=== PATIENT | male | born 1980 | race Two or more races ===

== ENCOUNTER 2017-10-28 16:40 | Emergency (ER) | payer BC ==
[~2017-10-28] VITALS: Ht 177.8 cm; Wt 122.5 kg
[2017-10-28] MEDS ORDERED: LORazepam 0.5 MG TAB PO ONE (17:30)
[2017-10-28 19:20] LABS: Basophils # (auto) 0.1 uL; Basophils % (auto) 0.8 % (0.0-2.0); Eosinophils # (auto) 0.3 uL; Eosinophils % (auto) 3.2 % (0.0-7.0); Hematocrit 43.2 % (41.0-53.0); Hemoglobin 14.8 g/dL (13.5-17.5); Lymphocytes # (auto) 2.7 uL; Lymphocytes % (auto) 26.4 % (10.0-50.0); Mean Corpuscular Hemoglobin 30.8 pg (28.0-32.0); Mean Corpuscular Hgb Conc. 34.2 g/dL (32.0-36.0); Monocytes # (auto) 0.9 uL; Monocytes % (auto) 8.7 % (0.0-12.0); Neutrophils # (auto) 6.3 uL; Neutrophils % (auto) 60.9 % (37.0-80.0); Nucleated Red Blood Cells % 0.1 %; Platelet Count (auto) 360 10^3/uL (140-450); Red Cell Distribution Width 13.1 % (11.8-14.3); White Blood Cell 10.4 10^3/uL (4.4-10.8)
[2017-10-28 19:44] LABS: Alanine Aminotransferase 50 U/L (16-61); Albumin 4.1 g/dL (3.4-5.0); Alkaline Phosphatase 70 U/L (45-117); Anion Gap 8 (5-15); Aspartate Aminotransferase 17 U/L (15-37); BUN/Creatinine Ratio 11.2; Bilirubin, Total 0.3 mg/dL (0.2-1.0); Blood Urea Nitrogen 12 mg/dL (7-18); Calcium 8.8 mg/dL (8.5-10.1); Carbon Dioxide 22 mmol/L (21-32); Chloride 109 mmol/L (98-107); GFR African American 99 mL/min; GFR Non-African American 82 mL/min; Glucose 102 mg/dL (74-106); Magnesium 2.6 mg/dL (1.6-2.6); Potassium 3.8 mmol/L (3.5-5.1); Sodium 139 mmol/L (136-145); Total Protein 7.8 g/dL (6.4-8.2)
[2017-10-28 20:04] VITALS: BP 109/72
== END 2017-10-28 19:53 | disposition home or self-care (01) ==
LOC: ER 16:45
DX: R07.89 Other chest pain (principal); F41.9 Anxiety disorder, unspecified; I10 Essential (primary) hypertension
CPT/HCPCS: 36415; 71046; 80053; 83735; 84484; 85025; 93005; 94761

== ENCOUNTER → 2022-05-28 | Outpatient (CLI) | payer BC ==
[2022-05-28 10:16] LABS: Basophils # (auto) 0.1 10 ^3/uL (0-0.2); Basophils % (auto) 0.8 % (0.0-2.0); Eosinophils # (auto) 0.3 10 ^3/uL (0-0.8); Eosinophils % (auto) 5.4 % (0.0-7.0); Hematocrit 43.4 % (41.0-53.0); Hemoglobin 14.8 g/dL (13.5-17.5); Lymphocytes # (auto) 2.5 10 ^3/uL (0.4-5.4); Lymphocytes % (auto) 40.7 % (10.0-50.0); Mean Corpuscular Hemoglobin 30.8 pg (28.0-32.0); Mean Corpuscular Hgb Conc. 34.1 g/dL (32.0-36.0); Mean Corpuscular Volume 90.1 fL (80.0-100.0); Monocytes # (auto) 0.6 10 ^3/uL (0-1.3); Monocytes % (auto) 10.4 % (0.0-12.0); Neutrophils # (auto) 2.7 10 ^3/uL (1.6-8.6); Neutrophils % (auto) 42.7 % (37.0-80.0); Nucleated Red Blood Cells % 0.3 %; Red Blood Cells 4.82 10^6/uL (4.5-5.90); Red Cell Distribution Width 13.4 % (11.8-14.3); White Blood Cell 6.2 10^3/uL (4.4-10.8)
[2022-05-28 10:24] LABS: Urine Bacteria NONE SEEN /hpf (None Seen); Urine Blood Negative /uL (Negative); Urine Specific Gravity 1.023 (1.001-1.035); Urine WBC <1 /hpf (0 - 3)
[2022-05-28 10:59] LABS: Albumin 3.9 g/dL (3.4-5.0); Potassium 4.2 mmol/L (3.5-5.1)
[2022-05-28 11:08] LABS: BUN/Creatinine Ratio 26.8 (10.0-20.0); Bilirubin, Total 0.5 mg/dL (0.2-1.0); Calcium 8.8 mg/dL (8.5-10.1); Total Protein 7.3 g/dL (6.4-8.2)
== END | disposition home or self-care (01) ==
LOC: LAB 09:38
PROVIDERS: ATTEND Nurse Practitioner
DX: Z00.00 Encounter for general adult medical examination without abnormal findings (principal); I10 Essential (primary) hypertension; R73.9 Hyperglycemia, unspecified; E78.5 Hyperlipidemia, unspecified
CPT/HCPCS: 36415; 80053; 80061; 81001; 83036; 84443; 85025

== ENCOUNTER → 2022-07-22 | Outpatient (CLI) | payer BC | END | disposition home or self-care (01) | LOC: Rad HDHVI 08:04 | PROVIDERS: ATTEND Internal Medicine Cardiovascular Disease | DX: I35.8 Other nonrheumatic aortic valve disorders (principal); E78.5 Hyperlipidemia, unspecified; R00.2 Palpitations | CPT/HCPCS: 93306 ==

== ENCOUNTER → 2022-08-04 | Outpatient (CLI) | payer BC ==
[~2022-08-04] VITALS: Ht 175.3 cm; Wt 113.4 kg
== END | disposition home or self-care (01) ==
LOC: Rad HDHVI 14:30
PROVIDERS: ATTEND Internal Medicine Cardiovascular Disease
DX: I25.10 Atherosclerotic heart disease of native coronary artery without angina pectoris (principal); R42 Dizziness and giddiness; R00.2 Palpitations; R07.89 Other chest pain; R06.02 Shortness of breath; E78.00 Pure hypercholesterolemia, unspecified; J44.9 Chronic obstructive pulmonary disease, unspecified; I11.0 Hypertensive heart disease with heart failure; I50.9 Heart failure, unspecified; Z79.899 Other long term (current) drug therapy
CPT/HCPCS: 78452; 93017; 96374; A9500

== ENCOUNTER → 2023-11-04 | Outpatient (CLI) | payer BC ==
[2023-11-04 10:45] LABS: Alanine Aminotransferase 35 U/L (7-40); Alkaline Phosphatase 47 U/L (46-116); Anion Gap 8 (5-15); BUN/Creatinine Ratio 13.7 (10.0-20.0); Blood Urea Nitrogen 13 mg/dL (9-23); Calcium 9.5 mg/dL (8.7-10.4); Carbon Dioxide 25 mmol/L (20-30); Chloride 106 mmol/L (98-107); Glucose 99 mg/dL (74-106); LDL Cholesterol 227 mg/dL (< 100); Potassium 4.3 mmol/L (3.5-5.1); Sodium 139 mmol/L (136-145); Triglycerides 122 mg/dL (< 150)
[2023-11-04 10:46] LABS: Albumin 4.6 g/dL (3.2-4.8); Aspartate Aminotransferase 14 U/L (13-40); Cholesterol 279 mg/dL (< 200); HDL Cholesterol 36 mg/dL (40-59)
[2023-11-04 10:47] LABS: Bilirubin, Total 0.6 mg/dL (0.2-1.0); Total Protein 6.9 g/dL (5.7-8.2)
== END | disposition home or self-care (01) ==
LOC: LAB 09:48
PROVIDERS: ATTEND Nurse Practitioner
DX: E78.5 Hyperlipidemia, unspecified (principal)
CPT/HCPCS: 36415; 80053; 80061

== ENCOUNTER → 2024-02-16 | Outpatient (CLI) | payer BC ==
[~2024-02-16] MED LIST: BUSP10TA31 PO; IOHEXOL 350 MG/ML 100ML IJ ONE; NEBI10TA2 PO
[2024-02-16 08:50] VITALS: BP 134/84; PULSE 79; RESP 16; O2SAT 97
[2024-02-16 09:05] VITALS: BP 136/74; PULSE 63; RESP 16; O2SAT 95
--- NOTE | 2024-02-16 10:18 | DVH ---
CTA CHEST INDICATION: R/O PE TECHNIQUE: Multidetector CTA of the chest was performed of the chest with 100 cc of intravenous contr ast. PULMONARY ANGIOGRAPHY PROTOCOL was utilized using a bolus-tracking technique centered on the rg n pulmonary artery. Axial, coronal and sagittal multiplanar and MIP reformats were performed. Radiation Dose Information: CT Dose: CTDI volume is 34.16 mGy. Dose-length product is 1162.37 mGy*cm The dose indicators for CT are the volume Computed Tomography (CT) Dose Index (CTDIvol) and the Dose Length Product (DLP), and are measured in units of mGy and mGy-cm, respectively. These indicators are not patient dose, but values generated from the CT scanner acquisition factors. The report includes radiation exposure data for exposures received during this examination. Findings: The evaluation of the lungs and pulmonary vasculature are limited secondary to respiratory motion. Pulmonary artery: There is no obvious pulmonary arterial filling defect to suggest pulmonary embolis m. The main pulmonary artery demonstrates normal caliber. Lungs/Pleura: No focal consolidation, pulmonary mass, or suspicious pulmonary nodule. There is no pl eural effusion. Heart/Vascular Structures: Normal heart size. The thoracic aorta demonstrates normal caliber. There is no evidence of pericardial effusion. Lymph Nodes: There is no evidence of thoracic lymphadenopathy. Musculoskeletal: No acute osseous abnormality. Upper abdomen: Limited portions of the upper abdomen are unremarkable. IMPRESSION: 1. Limited evaluation of the lungs and pulmonary vasculature secondary to respiratory motion. 2. There is no obvious pulmonary arterial filling defect to suggest pulmonary embolism. HS:Y
== END | disposition home or self-care (01) ==
LOC: Rad HDHVI 08:35
PROVIDERS: ATTEND Internal Medicine Cardiovascular Disease
DX: Z03.89 Encounter for observation for other suspected diseases and conditions ruled out (principal); R06.02 Shortness of breath; I20.9 Angina pectoris, unspecified
CPT/HCPCS: 71275; G0463; Q9967

== ENCOUNTER 2024-02-22 08:47 | Emergency (ER) | payer BC ==
[~2024-02-22] VITALS: Ht 177.8 cm; Wt 116.8 kg
[2024-02-22 09:09] VITALS: TEMP 98
--- NOTE | 2024-02-22 09:20 | DVH ---
CHEST RADIOGRAPH Indication: CHEST TIGHTNESS Technique: Frontal and lateral view of the chest was obtained Comparison: None FINDINGS: Lines and Tubes: None Lungs: Clear Pleura: No effusion. No pneumothorax. Cardiomediastinal contours: Unremarkable Bones: Unremarkable IMPRESSION: No evidence of acute disease.
--- NOTE | 2024-02-22 09:46 | ED.PDOC ---
HPI Comments 43Y M with PMHx HTN presents to ED for chief complaint high blood pressure readings. Pt states his BP was 155/92 at home. Per pt, his blood pressure has been controlled with diet and exercise in the past and he does not currently take any HTN medications. BP upon ED arrival was 147/92 and 142/82. Pt is being f/u by Dr. Cordon for previous chest tightness issues and had CTA done last week. Pt also has stress test scheduled for this Tuesday02/24/2024. Chief Complaint: High Blood Pressure Time Seen by MD: 09:30 Primary Care Provider: JOSE Reviewed Notes: Nurses Notes, Medications, Allergies Allergies: Coded Allergies: NO KNOWN ALLERGIES (Unverified , 10/28/17) Information Source: Patient Mode of Arrival: Ambulatory Severity: Mild Timing: Days Duration: Intermittent Onset: At Rest Cardiac Risk Factors: HTN PE Risk Factors: None History of: None Modifying Factors: Nothing Associated Signs and Symptoms: None Past Medical History PAST MEDICAL HISTORY: HTN Surgical History: Denies all surgeries Family History Family History: Unknown Social History Smoker: Non-Smoker Alcohol: Denies ETOH Use Drugs: Denies Drug Use Lives In: Home Constitutional: denies: chills, diaphoresis, fatigue, fever, malaise, sweats, weakness, others EENTM: denies: blurred vision, double vision, ear bleeding, ear discharge, ear drainage, ear pain, ear ringing, eye pain, eye redness, hearing loss, mouth pain, mouth swelling, nasal discharge, nose bleeding, nose congestion, nose pain, photophobia, tearing, throat pain, throat swelling, voice changes, others Respiratory: denies: cough, hemoptysis, orthopnea, SOB at rest, shortness of breath, SOB with excertion, stridor, wheezing, others Cardiovascular: denies: chest pain, dizzy spells, diaphoresis, Dyspnea on exertion, edema, irregular heart beat, left arm pain, lightheadedness, palpitations, PND, syncope, others Gastrointestinal: denies: abdomen distended, abdominal pain, blood streaked bowels, constipated, diarrhea, dysphagia, difficulty swallowing, hematemesis, melena, nausea, poor appetite, poor fluid intake, rectal bleeding, rectal pain, vomiting, others Genitourinary: denies: burning, dysuria, flank pain, frequency, hematuria, incontinence, penile discharge, penile sore, pain, testicle pain, testicle swelling, urgency, others Neurological: denies: dizziness, fainting, headache, left sided numbness, left sided weakness, numbness, paresthesia, pre-existing deficit, right sided numbness, right sided weakness, seizure, speech problems, tingling, tremors, weakness, others Musculoskeletal: denies: back pain, gout, joint pain, joint swelling, muscle pain, muscle stiffness, neck pain, others Integumetry: denies: bruises, change in color, change in hair/nails, dryness, laceration, lesions, lumps, rash, wounds, others Allergic/Immunocompromised: denies: Difficulty Healing, Frequent Infections, Hives, Itching, others Hematologic/Lymphatic: denies: anemia, blood clots, easy bleeding, easy bruising, swollen glands, others Endocrine: denies: excessive hunger, excessive sweating, excessive thirst, excessive urination, flushing, intolerance to cold, intolerance to heat, unexplained weight gain, unexplained weight loss, others Psychiatric: denies: anxiety, bipolar disorder, depression, hopeless, panic disorder, schizophrenia, sleepless, suicidal, others All Other Systems: Reviewed and Negative Physical Exam General Appearance: No Apparent Distress, Normal HEENT: Normal ENT Inspection, PERRL/EOMI, Pharynx Normal, TMs Normal Neck: Full Range of Motion, Non-Tender, Normal, Normal Inspection Respiratory: Chest Non-Tender, Lungs Clear, No Accessory Muscle Use, No Respiratory Distress, Normal Breath Sounds Cardiovascular: No Edema, No JVD, No Murmur, No Gallop, Normal Peripheral Pul ses, Regular Rate/Rhythm Breast Exam: Deferred Gastrointestinal: No Organomegaly, Non Tender, No Pulsatile Mass, Normal Bowel Sounds, Soft Genitalia: Deferred Pelvic: Deferred Rectal: Deferred Extremities: No calf tenderness, Normal capillary refill, Normal inspection, Normal range of motion, Non-tender, No pedal edema Musculoskeletal : Apperance: Normal Neurologic: Alert, centrifugal machine tender II-XII nml as Tested, No Motor Deficits, Normal Affect, Normal Mood, No Sensory Deficits Cerebellar Function: Normal Reflexes: Normal Skin: Dry, Normal Color, Warm Peripheral Pulses: 1+ carotid (R), 1+ carotid (L) Lymphatic: No Adenopathy EKG EKG : Pulse Rate (adult): 73 Cardiac Rhythm: NSR Was a procedure done? Was a procedure done?: No CP Differential Dx Differential Diagnosis: Angina, Anxiety / Panic Attack, Electrolyte Disorder Differential Diagnosis: HTN Essential Differential Diagnosis: Chest Wall Pain, Costochondritis, Esophageal reflux/spasm, Pneumonia X-Ray, Labs, Meds, VS Vital Signs Date Time Temp Pulse Resp B/P (MAP) Pulse Ox O2 Delivery O2 Flow Rate FiO2 02/22/24 11:11 67 18 133/75 (94) 98 02/22/24 09:54 64 02/22/24 09:46 73 02/22/24 09:09 77 18 98 Room Air 02/22/24 09:09 98.0 77 18 142/82 (102) 98 98.0 02/22/24 08:59 73 02/22/24 08:55 99.2 89 18 147/92 (110) 97 Lab Test 02/22/24 09:58 02/22/24 09:02 Range/Units Troponin I High Sensitivity < 3 L < 3 L </=54 ng/L White Blood Count 6.1 4.4-10.8 10^3/uL Red Blood Count 4.81 4.5-5.90 10^6/uL Hemoglobin 14.8 13.5-17.5 g/dL Hematocrit 43.5 41.0-53.0 % Mean Corpuscular Volume 90.5 80.0-100.0 fL Mean Corpuscular Hemoglobin 30.8 28.0-32.0 pg Mean Corpuscular Hemoglobin Concent 34.0 32.0-36.0 g/dL Red Cell Distribution Width 13.1 11.8-14.3 % Platelet Count 268 140-450 10^3/uL Mean Platelet Volume 7.8 6.9-10.8 fL Neutrophils (%) (Auto) 59.8 37.0-80.0 % Lymphocytes (%) (Auto) 30.3 10.0-50.0 % Monocytes (%) (Auto) 6.5 0.0-12.0 % Eosinophils (%) (Auto) 2.8 0.0-7.0 % Basophils (%) (Auto) 0.6 0.0-2.0 % Neutrophils # (Auto) 3.7 1.6-8.6 10 ^3/uL Lymphocytes # (Auto) 1.9 0.4-5.4 10 ^3/uL Monocytes # (Auto) 0.4 0-1.3 10 ^3/uL Eosinophils # (Auto) 0.2 0-0.8 10 ^3/uL Basophils # (Auto) 0 0-0.2 10 ^3/uL Nucleated Red Blood Cells 0.0 % Sodium Level 139 136-145 mmol/L Potassium Level 3.9 3.5-5.1 mmol/L Chloride Level 108 H 98-107 mmol/L Carbon Dioxide Level 24 20-31 mmol/L Anion Gap 7 5-15 Blood Urea Nitrogen 20 9-23 mg/dL Creatinine 1.10 0.700-1.30 mg/dL Glomerular Filtration Rate Calc 85 >90 mL/min BUN/Creatinine Ratio 18.2 10.0-20.0 Serum Glucose 130 H 74-106 mg/dL Calcium Level 10.0 8.7-10.4 mg/dL Total Bilirubin 0.5 0.2-1.0 mg/dL Aspartate Amino Transferase (AST) 19 13-40 U/L Alanine Aminotransferase (ALT) 33 7-40 U/L Alkaline Phosphatase 60 46-116 U/L Total Protein 7.1 5.7-8.2 g/dL Albumin 4.7 3.2-4.8 g/dL [place] [address] Ph: [phone] DIAGNOSTIC IMAGING Diagnostic Imaging Report : [id number] Signed PATIENT: JOSE COE ACCT: [id number] UNIT: [id number] : 1980 LOC: ER ROOM / BED: / AGE / SEX: 43 / M ADM STATUS: REG ER SERVICE [id number] ORDERING PHYSICIAN: MARIELOS RUBIO MD PROCEDURE(s): CXR2 - CHEST TWO VIEWS ROUTINE REASON: CHEST TIGHTNESS ORDER NUMBER(s): [id number], ACCESSION NUMBER(s): [id number] CHEST RADIOGRAPH Indication: CHEST TIGHTNESS Technique: Frontal and lateral view of the chest was obtained Comparison: None FINDINGS: Lines and Tubes: None Lungs: Clear Pleura: No effusion. No pneumothorax. Cardiomediastinal contours: Unremarkable Bones: Unremarkable IMPRESSION: No evidence of acute disease. ATED BY: ZE MUNIZ MD DICTATED DATE/TIME: 02/22/24915 SIGNED BY: ZE MUNIZ MD SIGNED DATE/TIME: 02/22/24915 CC: X-Ray, Labs, Meds, VS Comment Course in the emergency department eventful patient came in complaining of uncontrolled hypertension and chest pressure he has been seeing Dr. Howard for the past two weeks for the same issues his blood pressure at this time is 1:40 a.m. Chest x-ray is normal EKG shows normal sinus rhythm at 73 Troponin pre and three CBC normal CMP normal except for a blood sugar of 130 Patient is feeling better and will be discharged home to follow up with his PCP and compression molding machine tender Time of 1ST Reevaluation: 10:00 Reevaluation 1ST: Unchanged Patient Education/Counseling: Diagnosis, Treatment Family Education/Counseling: No Family Present Departure 1 Departure Time of Disposition: 12:21 Impression: Primary Impression: Uncontrolled hypertension Additional Impressions: Musculoskeletal chest pain Situational anxiety Disposition: HOME / SELF CARE / HOMELESS Condition: Fair Additional Instructions: Push fluids and follow up with your compression molding machine tender e-Prescriptions Buspirone HCl (Buspirone HCl) 10 Mg Tab 10 MG PO BID for 30 Days, #60 TAB Prov: MARIELOS RUBIO MD 02/22/24 Nebivolol Hcl (Bystolic) 10 Mg Tab 1 TAB PO bedtime for 30 Days, #30 TAB 1 Refill Prov: MARIELOS RUBIO MD 02/22/24 Discharged With: Self Critical Care Note Critical Care Time?: No Stability Stability form required: No Heart Score Heart Score: Heart Score Response (Comments) Value History Slightly Suspicious 0 EKG Normal 0 Age <45 0 Risk Factors 1 or 2 risk factors 1 Troponin Normal limit 0 Total 1 I personally scribed for MARIELOS RUBIO MD ([email or web address]) on 02/22/24 at 09:46. Electronically submitted by Taylor Amin ([employer]). I personally scribed for MARIELOS RUBIO MD ([email or web address]) on 02/22/24 at 09:55. Electronically submitted by Taylor Amni ([email or web address]). MARIELOS RUBIO MD Feb 22, 2024 09:46
--- NOTE | 2024-02-22 09:55 | ECG ---
[facility] Test Date: 2024-02-22 Test Time: 09:54:00 Pat Name: JOSE COE Department: ER Room: Gender: M Human Resources Operations Director: SHA : 1980 Requested By: MARIELOS RUBOI Order Number: [id number] Reading MD: Thom Blas Measurements Intervals [place] Rate: 64 P: 77 SC: 161 QRS: 78 QRSD: 104 T: 13 QT: 350 QTc: 361 Interpretive Statements Sinus rhythm Abnormal inferior Q waves Electronically Signed On 02-23-2024 8:54:28 PST by Thom Blas Please click the below link to view image of tracing.
[2024-02-22 09:56] LABS: Alanine Aminotransferase 33 U/L (7-40); Albumin 4.7 g/dL (3.2-4.8); Alkaline Phosphatase 60 U/L (46-116); Anion Gap 7 (5-15); Aspartate Aminotransferase 19 U/L (13-40); BUN/Creatinine Ratio 18.2 (10.0-20.0); Bilirubin, Total 0.5 mg/dL (0.2-1.0); Blood Urea Nitrogen 20 mg/dL (9-23); Carbon Dioxide 24 mmol/L (20-31); Potassium 3.9 mmol/L (3.5-5.1); Sodium 139 mmol/L (136-145); Total Protein 7.1 g/dL (5.7-8.2)
[2024-02-22 10:22] LABS: Chloride 108 mmol/L (98-107); Glucose 130 mg/dL (74-106)
[2024-02-22 10:33] LABS: Basophils # (auto) 0 10 ^3/uL (0-0.2); Basophils % (auto) 0.6 % (0.0-2.0); Eosinophils # (auto) 0.2 10 ^3/uL (0-0.8); Eosinophils % (auto) 2.8 % (0.0-7.0); Hematocrit 43.5 % (41.0-53.0); Hemoglobin 14.8 g/dL (13.5-17.5); Lymphocytes # (auto) 1.9 10 ^3/uL (0.4-5.4); Lymphocytes % (auto) 30.3 % (10.0-50.0); Mean Corpuscular Hemoglobin 30.8 pg (28.0-32.0); Mean Corpuscular Volume 90.5 fL (80.0-100.0); Monocytes # (auto) 0.4 10 ^3/uL (0-1.3); Monocytes % (auto) 6.5 % (0.0-12.0); Neutrophils # (auto) 3.7 10 ^3/uL (1.6-8.6); Neutrophils % (auto) 59.8 % (37.0-80.0); Platelet Count (auto) 268 10^3/uL (140-450); Red Blood Cells 4.81 10^6/uL (4.5-5.90); Red Cell Distribution Width 13.1 % (11.8-14.3); White Blood Cell 6.1 10^3/uL (4.4-10.8)
[2024-02-22 11:11] VITALS: BP 133/75; PULSE 67; RESP 18; O2SAT 98
[2024-02-22] MEDS ORDERED: BUSP10TA31 PO ×2 (12:26→14:21)
[2024-02-22] MEDS ORDERED: NEBI10TA2 PO ×2 (12:26→14:21)
--- NOTE | 2024-02-28 18:03 | ECG ---
[facility] Test Date: 2024-02-22 Test Time: 08:59:54 Pat Name: JOSE COE Department: ER Room: Gender: M Project Manager: LUL : 1980 Requested By: MARIELOS RUBIO Order Number: [id number] Reading MD: Thom Blas Measurements Intervals [place] Rate: 73 P: 66 NC: 129 QRS: 88 QRSD: 110 T: 1 QT: 345 QTc: 381 Interpretive Statements Sinus rhythm Abnormal inferior Q waves Electronically Signed On 02-28-2024 18:13:05 PST by Thom Blas Please click the below link to view image of tracing.
== END 2024-02-22 12:49 | disposition home or self-care (01) ==
LOC: ER 08:47
DX: I10 Essential (primary) hypertension (principal); R07.89 Other chest pain; F41.9 Anxiety disorder, unspecified
CPT/HCPCS: 36415; 71046; 80053; 84484; 85025; 93005

== ENCOUNTER → 2024-02-24 | Outpatient (CLI) | payer BC ==
[~2024-02-24] VITALS: Ht 175.3 cm; Wt 113.4 kg
[~2024-02-24] MED LIST changes: -IOHEXOL 350 MG/ML 100ML IJ ONE
== END | disposition home or self-care (01) ==
LOC: Rad HDHVI 09:42
PROVIDERS: ATTEND Internal Medicine Cardiovascular Disease
DX: I11.0 Hypertensive heart disease with heart failure (principal); R00.2 Palpitations; I50.33 Acute on chronic diastolic (congestive) heart failure; I47.20 Ventricular tachycardia, unspecified; E78.5 Hyperlipidemia, unspecified; R07.89 Other chest pain; I49.3 Ventricular premature depolarization; Z82.49 Family history of ischemic heart disease and other diseases of the circulatory system
CPT/HCPCS: 78452; 93017; 96374; A9500

== ENCOUNTER → 2024-03-20 | Outpatient (CLI) | payer BC ==
[~2024-03-20] MED LIST changes: +ASPI-543 PO; +ATOR10TA52 PO; +ESOM40CA39 PO; +MAGN100T9 PO
[2024-03-20 13:00] VITALS: BP 122/79; PULSE 60; RESP 16; O2SAT 95
[2024-03-20 13:15] VITALS: BP 117/72; PULSE 64; RESP 16; O2SAT 95
--- NOTE | 2024-03-20 13:33 | DVH ---
XY CHEST TWO VIEWS ROUTINE CLINICAL HISTORY: PRE OP COMPARISON: XY CHEST TWO VIEWS ROUTINE on DOS: 02/22/24 TECHNIQUE: Frontal and lateral view of the chest was obtained FINDINGS: Lines and Tubes: None Lungs: No focal consolidation. Pleura: No effusion. No pneumothorax. Cardiomediastinal contours: Unremarkable Bones: No acute osseous abnormality. IMPRESSION: No acute cardiopulmonary disease.
--- NOTE | 2024-03-22 12:38 | DVHHP ---
ADMIT DATE: 03/21/2024 HISTORY OF PRESENT ILLNESS: The patient, who is 44 years old, presented with signs and symptom complex of shortness of breath, increasing blood pressure, morbid obesity. The patient's echocardiogram shows diminished left ventricular ejection fraction, and because of the above finding, it is felt that the patient should undergo coronary angiography to define coronary anatomy. Risks and benefits were explained to the patient. He denies previous history of myocardial infarction. Denies any history of trauma. Denies any history of drug use such as amphetamine or cocaine use. No history of tobacco use as well. No excessive use of alcohol. He denies any recent travel abroad. No history of any recent viral prodrome that could have caused his symptoms. Sleep apnea cannot be excluded at this time. He may require sleep study in the long run. REVIEW OF SYSTEMS: He denies any fever, chills, melena, hematochezia, hematemesis, hemoptysis. No hematuria. Denies any GI symptomatology such as irritable bowel syndrome, inflammatory bowel disease, diverticulitis or diverticulosis. Denies any infiltrative process such as amyloidosis or sarcoidosis. Denies any history of any liver disease. Denies any history of any infectious diseases such as hepatitis, HIV, etc. PHYSICAL EXAMINATION: VITAL SIGNS: Blood pressure is 134/80, pulse of 70, O2 saturation 98% on room air. HEENT: Pupils are reactive. Funduscopic exam is benign. Sclerae anicteric. Extraocular muscles are intact. Oral mucosa moist. Posterior pharynx without any exudates. NECK: No cervical adenopathy. No supraclavicular adenopathy. Carotid pulses are 2+ symmetrical, normal upstroke and contour. Thyroid is within normal limits. PULMONARY: Clear to auscultation. CARDIOVASCULAR: Regular rate. PMI is slightly diffuse, laterally displaced. ABDOMEN: Obese. Unable to appreciate an organomegaly. Stool guaiac is negative. NEUROLOGIC: The patient is intact. EXTREMITIES: 1+ pulses. ASSESSMENT AND PLAN: Thus, the patient appears to have dilated cardiomyopathy. Left heart catheterization will be done to rule out coronary artery disease and etiology of his heart dysfunction. We will make further recommendations after the left heart catheterization. Bravo Knight MD SA/ESTHER TID: [id number] RECEIPT: [id number]
== END | disposition home or self-care (01) ==
LOC: Rad HDHVI 12:43
PROVIDERS: ATTEND Internal Medicine Cardiovascular Disease
DX: Z01.811 Encounter for preprocedural respiratory examination (principal); I50.1 Left ventricular failure, unspecified
CPT/HCPCS: 71046; 93005; G0463

== ENCOUNTER 2024-03-22 07:41 | Day surgery (SDC) | payer BC ==
[2024-03-20 14:47] LABS: Basophils # (auto) 0.1 10 ^3/uL (0-0.2); Basophils % (auto) 1.3 % (0.0-2.0); Eosinophils # (auto) 0.3 10 ^3/uL (0-0.8); Eosinophils % (auto) 2.7 % (0.0-7.0); Hematocrit 45.8 % (41.0-53.0); Hemoglobin 15.3 g/dL (13.5-17.5); Lymphocytes # (auto) 3.2 10 ^3/uL (0.4-5.4); Lymphocytes % (auto) 34.4 % (10.0-50.0); Mean Corpuscular Hemoglobin 30.6 pg (28.0-32.0); Mean Corpuscular Hgb Conc. 33.5 g/dL (32.0-36.0); Mean Corpuscular Volume 91.2 fL (80.0-100.0); Monocytes # (auto) 0.7 10 ^3/uL (0-1.3); Monocytes % (auto) 7.9 % (0.0-12.0); Neutrophils # (auto) 5.1 10 ^3/uL (1.6-8.6); Neutrophils % (auto) 53.7 % (37.0-80.0); Platelet Count (auto) 287 10^3/uL (140-450); Red Blood Cells 5.02 10^6/uL (4.5-5.90); Red Cell Distribution Width 13.1 % (11.8-14.3); White Blood Cell 9.4 10^3/uL (4.4-10.8)
[2024-03-20 15:02] LABS: Chloride 106 mmol/L (98-107); Potassium 4.2 mmol/L (3.5-5.1); Sodium 141 mmol/L (136-145)
[2024-03-20 15:03] LABS: Anion Gap 8 (5-15); Carbon Dioxide 27 mmol/L (20-31)
[2024-03-20 15:04] LABS: Calcium 10.1 mg/dL (8.7-10.4)
[2024-03-20 15:09] LABS: Blood Urea Nitrogen 16 mg/dL (9-23); Glucose 84 mg/dL (74-106)
[2024-03-20 15:17] LABS: INR 1.01 (0.9-1.15); Partial Thromboplastin Time 27.2 SEC (24.5-34.5); Prothrombin Time 10.7 sec (9.3-11.8)
[~2024-03-22] VITALS: Ht 175.3 cm; Wt 121.1 kg
[2024-03-22] VITALS (11 sets, daily range): BP systolic 96–131; BP diastolic 54–87; PULSE 55–76; RESP 14–20; O2SAT 20–96
[~2024-03-22 07:41] MED LIST changes: -NEBI10TA2 PO
[2024-03-22] MEDS ORDERED: fentaNYL CITRATE 100 MCG/2 ML VL ONE (10:22)
[2024-03-22] MEDS ORDERED: LIDOCAINE 2%HCL (LOCAL ANESTH.) INJ 20ML MDV ONE (10:23)
[2024-03-22] MEDS ORDERED: MIDAZOLAM HCL 2MG/2ML 2ml VIAL (1mg/ml) ONE (10:23)
[2024-03-22] MEDS ORDERED: SODIUM CHL 0.9% 0 ML ONE (10:29)
[2024-03-22] MEDS ORDERED: ANGIOMAX 250 MG VIAL IV ONE (10:29)
--- NOTE | 2024-03-22 12:13 | DVHDS ---
DATE OF DISCHARGE: 03/22/2024 DISCHARGE DIAGNOSES: The patient with dilated cardiomyopathy, heart failure with reduced ejection fraction, chronic. HOSPITAL COURSE: The patient is obese. I have instructed him to lose weight. He may have a component of sleep apnea that is contributing to the dilated cardiomyopathy, although viral cardiomyopathy cannot be excluded or infiltrative cardiomyopathy cannot be excluded at this time. Continue all current medications. Follow up with me in 1 week. Stable at the time of discharge. DISPOSITION: Home. ACTIVITY: As instructed. DIET: Will be 2 gram sodium diet. Bravo Knight MD SA/JADA TID: [id number] RECEIPT: [id number]
--- NOTE | 2024-03-22 12:15 | DVHOP ---
DATE OF SURGERY: 03/22/2024 The patient who is 44 years old with history of cardiomyopathy now to undergo coronary angiography to rule out coronary artery disease. Risks and benefits were explained to the patient. PROCEDURES PERFORMED: * Selective left and right coronary angiography. * Ventriculogram. * Right iliac angiography. * Conscious sedation. DESCRIPTION OF PROCEDURE: The patient was prepped and draped under sterile conditions. Xylocaine 1% used to anesthetize the right groin. Using Cook needle, right femoral artery was engaged. With Seldinger technique, a 6-Indian sheath in the right femoral artery. Using 6-Indian JL4 catheter and 6-Indian JR4 catheter, selective left and right coronary angiographies were performed. Using 6-Indian pigtail catheter, ventriculogram was done. There were no complications. The patient tolerated the procedure well. Right femoral arteriotomy site was closed using the Angio-Seal device. There was some difficulty deploying the device however but adequate seal was obtained. RESULTS: * Left main patent. * Left anterior descending artery was patent. * Circumflex was patent and dominant. * Right coronary artery patent without any flow-restrictive lesion. * Left ventricular function shows global hypokinesis and estimated EF around 40%-45% with an LVEDP of 15 mmHg with no gradient across the aortic valve. CONCLUSION: The patient with dilated cardiomyopathy with normal coronary anatomy with an EF around 40%-45%. Bravo Knight MD SA/SRIDHAR TID: [id number] RECEIPT: [id number]
== END 2024-03-22 16:08 | disposition home or self-care (01) ==
LOC: CATH 07:41
PROVIDERS: ATTEND Internal Medicine Cardiovascular Disease
DX: R94.39 Abnormal result of other cardiovascular function study (principal); R07.89 Other chest pain; R06.02 Shortness of breath; I11.0 Hypertensive heart disease with heart failure; I50.20 Unspecified systolic (congestive) heart failure; R79.1 Abnormal coagulation profile; E66.9 Obesity, unspecified; I42.0 Dilated cardiomyopathy
CPT/HCPCS: 36415; 80048; 85025; 85610; 85730; 93458; C1760; C1894; J1644; J2250; J3010; 99152

== ENCOUNTER → 2024-04-04 | Outpatient (CLI) | payer BC ==
[2024-04-04 08:58] LABS: Urine Bacteria None Seen /hpf (None Seen)
[2024-04-04 09:06] LABS: Basophils # (auto) 0.1 10 ^3/uL (0-0.2); Basophils % (auto) 0.8 % (0.0-2.0); Eosinophils # (auto) 0.3 10 ^3/uL (0-0.8); Eosinophils % (auto) 4.4 % (0.0-7.0); Hemoglobin 14.5 g/dL (13.5-17.5); Lymphocytes # (auto) 2.5 10 ^3/uL (0.4-5.4); Mean Corpuscular Hemoglobin 30.5 pg (28.0-32.0); Mean Corpuscular Hgb Conc. 33.6 g/dL (32.0-36.0); Mean Corpuscular Volume 90.7 fL (80.0-100.0); Monocytes # (auto) 0.6 10 ^3/uL (0-1.3); Monocytes % (auto) 8.1 % (0.0-12.0); Neutrophils # (auto) 3.9 10 ^3/uL (1.6-8.6); Neutrophils % (auto) 52.7 % (37.0-80.0); Nucleated Red Blood Cells % 0.1 %; Platelet Count (auto) 268 10^3/uL (140-450); Red Blood Cells 4.74 10^6/uL (4.5-5.90); Red Cell Distribution Width 12.8 % (11.8-14.3); White Blood Cell 7.4 10^3/uL (4.4-10.8)
[2024-04-04 09:11] LABS: Urine Blood Negative /uL (Negative); Urine Clarity Clear (Clear); Urine Color Yellow (Yellow); Urine Protein, UAD Negative (Negative); Urine Specific Gravity 1.021 (1.001-1.035); Urine Squamous Epithelial Cell FEW /hpf (<5); Urine Urobilinogen Normal (Negative); Urine WBC < 1 /HPF (0-3)
[2024-04-04 12:01] LABS: Alanine Aminotransferase 32 U/L (7-40); Albumin 4.6 g/dL (3.2-4.8); Anion Gap 8 (5-15); Aspartate Aminotransferase 21 U/L (13-40); BUN/Creatinine Ratio 14.3 (10.0-20.0); Blood Urea Nitrogen 13 mg/dL (9-23); Calcium 9.7 mg/dL (8.7-10.4); Carbon Dioxide 24 mmol/L (20-31); Glucose 91 mg/dL (74-106); Potassium 4.4 mmol/L (3.5-5.1); Sodium 139 mmol/L (136-145)
[2024-04-04 12:02] LABS: Bilirubin, Total 0.6 mg/dL (0.2-1.0); Total Protein 6.9 g/dL (5.7-8.2)
[2024-04-04 12:13] LABS: Chloride 107 mmol/L (98-107)
[2024-04-04 13:07] LABS: Alkaline Phosphatase 48 U/L (46-116)
[2024-04-04 13:40] LABS: LDL Cholesterol 93 mg/dL (< 100); Triglycerides 90 mg/dL (< 150)
[2024-04-04 13:41] LABS: Cholesterol 131 mg/dL (< 200)
[2024-04-04 13:47] LABS: HDL Cholesterol 32 mg/dL (40-59)
== END | disposition home or self-care (01) ==
LOC: LAB 08:42
PROVIDERS: ATTEND Internal Medicine
DX: Z00.01 Encounter for general adult medical examination with abnormal findings (principal); Z13.1 Encounter for screening for diabetes mellitus; I10 Essential (primary) hypertension; E78.5 Hyperlipidemia, unspecified
CPT/HCPCS: 36415; 80053; 80061; 81001; 83036; 84439; 84443; 85025; 86703; 86803

== ENCOUNTER 2024-08-27 09:56 | Inpatient (IN) | payer BC ==
[~2024-08-27] VITALS: Ht 175.3 cm; Wt 128.3 kg
--- NOTE | 2024-08-27 10:20 | ED.PDOC ---
SOB-HPI HPI Comments 44 y.o male with PMHx of HTN and cardiomyopathy with EJ of 45%, presents to the ED for a chief compliant of SOB associated with substernal chest tightness and nausea that started 5-6 days ago. Patient reports SOB has progressively worsened, states "grasping for air" whether he is at rest or on light exertion. Patient denies any vomiting, fever, chills, leg swelling or cough. Patient presents with a SPO2 of 97% on room air. He denies any home oxygen use. Chief Complaint: Shortness of Breath Time Seen by MD: 10:13 Primary Care Provider: JOSE Reviewed notes: Nurses Notes, Medications, Allergies Information Source: Patient Mode of Arrival: Ambulatory Severity: Moderate Timing: Days (5-6) Duration: Since onset Context: At Rest PE Risk Factors: None History of: None Modifying Factors: Nothing Associated Signs and Symptoms: Chest Pain Quality: Tightness Radiation: No Radiation Location: Substernal Past Medical History PAST MEDICAL HISTORY: HTN Past Medical History (Other): cardiomyopathy Surgical History: Denies all surgeries Family History Family History: Family hx of heart alex Social History Smoker: Non-Smoker, Other (nicotine gum ) Alcohol: Denies ETOH Use Drugs: Denies Drug Use Lives In: Home Constitutional: denies: chills, diaphoresis, fatigue, fever, malaise, sweats, weakness, others EENTM: denies: blurred vision, double vision, ear bleeding, ear discharge, ear drainage, ear pain, ear ringing, eye pain, eye redness, hearing loss, mouth pain, mouth swelling, nasal discharge, nose bleeding, nose congestion, nose pain, photophobia, tearing, throat pain, throat swelling, voice changes, others Respiratory: reports: SOB at rest, shortness of breath, SOB with excertion; denies: cough, hemoptysis, orthopnea, stridor, wheezing, others Cardiovascular: reports: chest pain; denies: dizzy spells, diaphoresis, Dyspnea on exertion, edema, irregular heart beat, left arm pain, lightheadedness, palpitations, PND, syncope, others Gastrointestinal: reports: nausea; denies: abdomen distended, abdominal pain, blood streaked bowels, constipated, diarrhea, dysphagia, difficulty swallowing, hematemesis, melena, poor appetite, poor fluid intake, rectal bleeding, rectal pain, vomiting, others Genitourinary: denies: burning, dysuria, flank pain, frequency, hematuria, incontinence, penile discharge, penile sore, pain, testicle pain, testicle swelling, urgency, others Neurological: denies: dizziness, fainting, headache, left sided numbness, left sided weakness, numbness, paresthesia, pre-existing deficit, right sided numbness, right sided weakness, seizure, speech problems, tingling, tremors, weakness, others Musculoskeletal: denies: back pain, gout, joint pain, joint swelling, muscle pain, muscle stiffness, neck pain, others Integumetry: denies: bruises, change in color, change in hair/nails, dryness, laceration, lesions, lumps, rash, wounds, others Allergic/Immunocompromised: denies: Difficulty Healing, Frequent Infections, Hives, Itching, others Hematologic/Lymphatic: denies: anemia, blood clots, easy bleeding, easy bruising, swollen glands, others Endocrine: denies: excessive hunger, excessive sweating, excessive thirst, excessive urination, flushing, intolerance to cold, intolerance to heat, unexplained weight gain, unexplained weight loss, others Psychiatric: denies: anxiety, bipolar disorder, depression, hopeless, panic disorder, schizophrenia, sleepless, suicidal, others All Other Systems: Reviewed and Negative Physical Exam General Appearance: Moderate Distress HEENT: Normal ENT Inspection, Pharynx Normal, TMs Normal Neck: Full Range of Motion, Non-Tender, Normal, Normal Inspection Respiratory: Chest Non-Tender, Lungs Clear, No Accessory Muscle Use, No Respiratory Distress, Normal Breath Sounds Cardiovascular: No Edema, No JVD, No Murmur, No Gallop, Normal Peripheral Pulses, Regular Rate/Rhythm Breast Exam: Deferred Gastrointestinal: No Organomegaly, Non Tender, No Pulsatile Mass, Normal Bowel Sounds, Soft Genitalia: Deferred Pelvic: Deferred Rectal: Deferred Extremities: No calf tenderness, Normal capillary refill, No pedal edema Musculoskeletal : Apperance: Normal Neurologic: Alert, cnc manufacturing engineer II-XII nml as Tested, Motor Weakness, Normal Affect, Normal Mood, No Sensory Deficits Cerebellar Function: Normal Reflexes: Normal Skin: Dry, Normal Color, Warm Lymphatic: No Adenopathy EKG EKG : Pulse Rate (adult): 94 Cardiac Rhythm: NSR Was a procedure done? Was a procedure done?: No Differential Dx Differential Diagnosis: Bronchitis, CHF, COPD, Pneumonia, Pulmonary Embolism, Respiratory Distress, URI X-Ray, Labs, Meds, VS Vital Signs Date Time Temp Pulse Resp B/P (MAP) Pulse Ox O2 Delivery O2 Flow Rate FiO2 08/27/24 11:12 97.9 83 18 102/71 (81) 95 97.9 08/27/24 10:20 84 18 98 Room Air 08/27/24 10:20 84 18 124/82 (96) 98 08/27/24 10:20 94 08/27/24 10:14 17 97 Room Air* 0 21 08/27/24 10:08 98.2 98 17 142/80 (100) 97 98.2 08/27/24 10:06 96 Lab Test 08/27/24 11:02 Range/Units White Blood Count 7.0 4.4-10.8 10^3/uL Red Blood Count 4.90 4.5-5.90 10^6/uL Hemoglobin 15.1 13.5-17.5 g/dL Hematocrit 43.5 41.0-53.0 % Mean Corpuscular Volume 88.8 80.0-100.0 fL Mean Corpuscular Hemoglobin 30.7 28.0-32.0 pg Mean Corpuscular Hemoglobin Concent 34.6 32.0-36.0 g/dL Red Cell Distribution Width 13.2 11.8-14.3 % Platelet Count 259 140-450 10^3/uL Mean Platelet Volume 7.6 6.9-10.8 fL Neutrophils (%) (Auto) 53.3 37.0-80.0 % Lymphocytes (%) (Auto) 30.9 10.0-50.0 % Monocytes (%) (Auto) 8.5 0.0-12.0 % Eosinophils (%) (Auto) 6.3 0.0-7.0 % Basophils (%) (Auto) 1.0 0.0-2.0 % Neutrophils # (Auto) 3.8 1.6-8.6 10 ^3/uL Lymphocytes # (Auto) 2.2 0.4-5.4 10 ^3/uL Monocytes # (Auto) 0.6 0-1.3 10 ^3/uL Eosinophils # (Auto) 0.4 0-0.8 10 ^3/uL Basophils # (Auto) 0.1 0-0.2 10 ^3/uL Nucleated Red Blood Cells 0.1 % D-Dimer, Quantitative < 0.19 0.0-0.49 mg/L FEU Sodium Level 143 136-145 mmol/L Potassium Level 4.3 3.5-5.1 mmol/L Chloride Level 108 H 98-107 mmol/L Carbon Dioxide Level 26 20-31 mmol/L Anion Gap 9 5-15 Blood Urea Nitrogen 15 9-23 mg/dL Creatinine 0.90 0.700-1.30 mg/dL Glomerular Filtration Rate Calc 107 >90 mL/min BUN/Creatinine Ratio 16.7 10.0-20.0 Serum Glucose 100 74-106 mg/dL Calcium Level 10.2 8.7-10.4 mg/dL Troponin I High Sensitivity 3 L </=54 ng/L B-Type Natriuretic Peptide 19.15 0-100 pg/mL IV Hep-Lock is being established The patient was given aspirin here in the emergency department's The CBC is within normal limits The D-dimer is negative The chemistry panel is within normal limits The troponin level is negative The patient is still having some persistent discomfort so the patient is being admitted to the hospitalist Images Reviewed?: Images reviewed and evaluated by me Time of 1ST Reevaluation: 11:30 Reevaluation 1ST: Unchanged Patient Education/Counseling: Diagnosis, Treatment, Prognosis Family Education/Counseling: No Family Present SEPSIS Sepsis Screen Date sepsis recognized/suspect: Aug 27, 2024 Time Sepsis recognized/suspect: 1000 Recent Procedure: No On Antibiotic Therapy: No Respiratory Rate >20: No Heart Rate >90: No Temp<36 C (96.8 F) or >38.3 C: No SBP <90 or MAP <65 mmHG: No New Acute Mental Status Change: No Is the patient on CPAP, BIPAP,: No Physician Orders Electrocardigram (08/27/24 10:10) Heplock Iv (08/27/24 10:18) Pulse Oximetry (08/27/24 10:18) Healthcare Translator (08/27/24 10:18) Blood Pressure (08/27/24 10:18) Chest Two Views Routine (08/27/24 10:18) Troponin-I Hs (08/27/24 11:18) Troponin-I Hs (08/27/24 13:18) Vital Signs Date Time Temp Pulse Resp B/P (MAP) Pulse Ox O2 Delivery O2 Flow Rate FiO2 08/27/24 11:12 97.9 83 18 102/71 (81) 95 97.9 08/27/24 10:20 84 18 98 Room Air 08/27/24 10:20 84 18 124/82 (96) 98 08/27/24 10:20 94 08/27/24 10:14 17 97 Room Air* 0 21 08/27/24 10:08 98.2 98 17 142/80 (100) 97 98.2 08/27/24 10:06 96 Laboratory Tests Test 08/27/24 11:02 White Blood Count 7.0 10^3/uL (4.4-10.8) Departure 1 Departure Time of Disposition: 12:04 Impression: Primary Impression: Acute coronary syndrome Disposition: 09 ADMITTED INPATIENT Admit to: [facility] Condition: Fair Critical Care Note Critical Care Time?: Yes (45 min-critical care time only) Stability Stability form required: Yes Unstable for transfer: Telemetry monitoring (Telemetry monitoring required), ED Physician Assesment (Clinical assesment) Heart Score Heart Score: Heart Score Response (Comments) Value History Slightly Suspicious 0 EKG Normal 0 Age 45-64 1 Risk Factors >3 or Hx ASHD 2 Troponin Normal limit 0 Total 3 I personally scribed for JAY WEIR MD ([email or web address]) on 08/27/24 at 10:20. Electronically submitted by Rosario Brwon ([facility]). JAY WEIR MD Aug 27, 2024 10:20
--- NOTE | 2024-08-27 10:44 | DVH ---
CHEST RADIOGRAPH Indication: SOB Technique: Frontal and lateral view of the chest was obtained Comparison: XY CHEST TWO VIEWS ROUTINE on DOS: 03/20/24, XY CHEST TWO VIEWS ROUTINE on DOS: 02/22/24 FINDINGS: Lines and Tubes: None Lungs: Clear Pleura: No effusion. No pneumothorax. Cardiomediastinal contours: Unremarkable Bones: Unremarkable IMPRESSION: No evidence of acute disease.
[2024-08-27 11:27] LABS: Hematocrit 43.5 % (41.0-53.0); Hemoglobin 15.1 g/dL (13.5-17.5); Mean Corpuscular Hemoglobin 30.7 pg (28.0-32.0); Mean Corpuscular Volume 88.8 fL (80.0-100.0); Nucleated Red Blood Cells % 0.1 %
[2024-08-27 11:38] LABS: Potassium 4.3 mmol/L (3.5-5.1); Sodium 143 mmol/L (136-145)
[2024-08-27 11:39] LABS: Anion Gap 9 (5-15); Carbon Dioxide 26 mmol/L (20-31)
[2024-08-27 11:40] LABS: Calcium 10.2 mg/dL (8.7-10.4); Chloride 108 mmol/L (98-107)
[2024-08-27 11:44] LABS: BUN/Creatinine Ratio 16.7 (10.0-20.0); Blood Urea Nitrogen 15 mg/dL (9-23); Glucose 100 mg/dL (74-106)
--- NOTE | 2024-08-27 22:22 | DVHHP2 ---
History of Present Illness History of Present Illness Patient is 44 years old male with past medical history of hypertension, cardiomyopathy, EF 45%, anxiety came with a complaint of shortness of breaths. As per patient he has been having shortness of breaths for last 5 days, intermittent, both during resting and on ambulation which got worse today and he was feeling like gasping for air which brought him to the ER. Patient also endorsed some chest tightness along with shortness of breaths. Patient denied any cough, palpitation, fever, sweating, diarrhea or or constipation or acute joint swelling or redness or dysarthria or change in vision. Patient had Cardiolite stress test on 03/02/2024 which was negative. Patient also had left heart catheterization on 03/22/[address] Cordon which revealed non significant coronary artery disease, LVEF 40-45%, dilated cardiomyopathy. Patient also reported he used to take Nabivolol which caused him bradycardia and that is why he does not take it anymore as per his colleter recommendation. Initial lab workup revealed troponin I and BNP with a normal limit, CXR-ray no acute abnormality noted. Past Medical History Hypertension, cardiomyopathy, EF 45%, anxiety Past Surgical History No surgical history Family History Mom had CABG, dad had valvular surgery Past Social History Patient smoker, quit 10 years before, denies alcoholism/drug abuse, lives with w mar Review of Systems Review of Systems Allergy- NKDA Patient was seen today at the bedside. P Cardiovascular- deny acute cough or palpitation Respiratory denies cough or wheezing Gastrointestinal- denies any rectal bleeding, nausea or vomiting Musculoskeletal-denies acute joint swelling or tenderness or redness Neurological- denies acute dysarthria, dysphagia, change in vision Psychiatry- denies depression or SI or HI Skin- denies acute rash or purpura Allergies: Coded Allergies: NO KNOWN ALLERGIES (Unverified , 03/20/24) Medications Current Medications Medications Dose Ordered Sig/Neris Route Start Time Stop Time Status Last Admin Dose Admin Enoxaparin Sodium 40 mg DAILY SC 08/28/24 10:00 Acetaminophen 650 mg Q6HP PRN PO 08/27/24 22:30 UNV Nitroglycerin 0.4 mg Q5MINP PRN SL 08/27/24 22:30 UNV Morphine Sulfate 2 mg Q30M PRN IV 08/27/24 22:30 UNV Aspirin 81 mg DAILY PO 08/28/24 10:00 UNV Atorvastatin Calcium 40 mg HS PO 08/28/24 22:00 UNV Pantoprazole Sodium 40 mg DAILY@0600 PO 08/28/24 06:00 UNV Exam Vital Signs Vital Signs Date Time Temp Pulse Resp B/P (MAP) Pulse Ox O2 Delivery O2 Flow Rate FiO2 08/27/24 20:49 97.6 60 12 125/80 (95) 95 97.6 08/27/24 10:20 Room Air 08/27/24 10:14 0 21 Exam General examination-awake, alert, oriented, conversant HEENT- PEERLA, no acute nasal discharge Cardiovascular- S1-S2 audible, rate and rhythm regular, no murmur Respiratory- CTAB, no wheeze or rhonchi Gastrointestinal-nontender, bowel sound+. Nondistended Musculoskeletal-no acute joint swelling or tenderness or redness Lower extremity- no leg edema Neurological- cranial nerves intact, no acute dysarthria or dysphagia Psychiatry- denies depression or SI or HI Skin- no acute rash or purpura Labs/Xrays Labs Test 08/27/24 13:58 08/27/24 11:02 Range/Units Troponin I High Sensitivity 3 L </=54 ng/L White Blood Count 7.0 4.4-10.8 10^3/uL Red Blood Count 4.90 4.5-5.90 10^6/uL Hemoglobin 15.1 13.5-17.5 g/dL Hematocrit 43.5 41.0-53.0 % Mean Corpuscular Volume 88.8 80.0-100.0 fL Mean Corpuscular Hemoglobin 30.7 28.0-32.0 pg Mean Corpuscular Hemoglobin Concent 34.6 32.0-36.0 g/dL Red Cell Distribution Width 13.2 11.8-14.3 % Platelet Count 259 140-450 10^3/uL Mean Platelet Volume 7.6 6.9-10.8 fL Neutrophils (%) (Auto) 53.3 37.0-80.0 % Lymphocytes (%) (Auto) 30.9 10.0-50.0 % Monocytes (%) (Auto) 8.5 0.0-12.0 % Eosinophils (%) (Auto) 6.3 0.0-7.0 % Basophils (%) (Auto) 1.0 0.0-2.0 % Neutrophils # (Auto) 3.8 1.6-8.6 10 ^3/uL Lymphocytes # (Auto) 2.2 0.4-5.4 10 ^3/uL Monocytes # (Auto) 0.6 0-1.3 10 ^3/uL Eosinophils # (Auto) 0.4 0-0.8 10 ^3/uL Basophils # (Auto) 0.1 0-0.2 10 ^3/uL Nucleated Red Blood Cells 0.1 % D-Dimer, Quantitative < 0.19 0.0-0.49 mg/L FEU Sodium Level 143 136-145 mmol/L Potassium Level 4.3 3.5-5.1 mmol/L Chloride Level 108 H 98-107 mmol/L Carbon Dioxide Level 26 20-31 mmol/L Anion Gap 9 5-15 Blood Urea Nitrogen 15 9-23 mg/dL Creatinine 0.90 0.700-1.30 mg/dL Glomerular Filtration Rate Calc 107 >90 mL/min BUN/Creatinine Ratio 16.7 10.0-20.0 Serum Glucose 100 74-106 mg/dL Calcium Level 10.2 8.7-10.4 mg/dL B-Type Natriuretic Peptide 19.15 0-100 pg/mL Assessment/Plan Assessment/Plan Assessment plan # Acute chest tightness and shortness of breaths, rule out acute coronary syndrome -EKG T-wave in lead 3 and AVF -troponin I and BNP within normal limit -ordered echo 2D -pending cardiology consult -continue aspirin 81 mg p.o. daily -continue atorvastatin 40 mg p.o. daily -resume home medication olmesartan # Dilated cardiomyopathy -Cardiolite stress test on 03/02/2024 which was negative. -left heart catheterization on 03/22/[address] Cordon which revealed no significant coronary artery disease, LVEF 40-45%, dilated cardiomyopathy -continue olmesartan as prescribed -pending cardiology consult #Hypertension -continue home medication olmesartan -monitor blood pressure #Obesity -patient was counseled about the effect of obesity on health, physical activity as tolerated, weight reduction, low-fat diet #Anxiety -home medication buspirone PCP- Dr. Ellen Henson- Cardiac Diet Goals of care, Code status Full code ; discussed with >15 minutes PUD prophylaxis: Pantoprazole DVT prophylaxis: Patient ambulating Plan discussed with Dr. Stephenson , nursing staff, Total time spent on patient evaluation, chart review, assessment and plan, discussion discussion >35 minutes Plan discussed with: Patient, Other (RN) My Orders Orders - BEATRICE FIGUEROA Procedure Category Date Status Time Admit ADMIT 08/27/24 Transmitted 22:16 Code Status CODE 08/27/24 Transmitted 22:16 Enoxaparin Sodium PHA 08/28/24 Logged (Lovenox) 10:00 Complete Blood Count LAB 08/28/24 Verified 04:00 Cardiac DIET 08/28/24 Transmitted Diet-2gna,Lofat,Lochol Breakfast Echo 2d Mode Cardiac US 08/27/24 Logged DOP 22:16 Acetaminophen Tablet PHA 08/27/24 Logged (Tylenol Tablet) 22:30 Nitroglycerin PHA 08/27/24 Logged Sublingual (Ntrostat 22:30 Morphine Sulfate PHA 08/27/24 Logged Injection 22:30 Notify Of Changes [facility] [place] 08/27/24 In Process From Base 22:16 Country Manager For [facility] [place] 08/27/24 In Process 24 Hours 22:16 Electrocardigram EKG 08/27/24 Logged 22:18 Aspirin Tablet PHA 08/27/24 Logged 22:30 Aspirin Tablet PHA 08/28/24 Logged 10:00 Atorvastatin (Lipitor) PHA 08/27/24 Logged 22:30 Atorvastatin (Lipitor) PHA 08/28/24 Logged 22:00 Pantoprazole Tablet PHA 08/27/24 Logged (Protonix Tablet) 22:30 Pantoprazole Tablet PHA 08/28/24 Logged (Protonix Tablet) 06:00 Date of Service: Aug 27, 2024 Billing Provider: CLAUDIA STEPHENSON MD Common Visit Codes: 85836-GEACMVX INP/OBS CARE (HIGH) Secondary Visit Codes: 93531-UPXGYPMN CARE PLAN 30 MINUTES BEATRICE FIGUEROA Aug 27, 2024 22:22
[2024-08-27] MEDS ORDERED: MORPHINE SULFATE INJ 2 MG/ml SYRG IV PRN (22:30)
[2024-08-27] MEDS ORDERED: NITROGLYCERIN 0.4 MG SL TAB SL PRN (22:30)
[2024-08-27] MEDS ORDERED: ACETAMINOPHEN 325 MG TAB PO PRN (22:30)
[2024-08-28 00:26] VITALS: BP 129/87; PULSE 67; RESP 15; TEMP 99.2; O2SAT 96
[2024-08-28] MEDS ORDERED: MORPHINE SULFATE INJ 2 MG/ml SYRG IV PRN (00:45)
[2024-08-28] MEDS ORDERED: NITROGLYCERIN 0.4 MG SL TAB SL PRN (00:45)
[2024-08-28] MEDS ORDERED: ACETAMINOPHEN 325 MG TAB PO PRN (00:45)
[2024-08-28] MEDS ORDERED: ATORVASTATIN 20 MG TAB PO ONE (01:00)
[2024-08-28] MEDS: ATORVASTATIN 20 MG TAB PO ONE ×2 (01:05→01:07)
[2024-08-28] MEDS: PANTOPRAZOLE 40 MG TAB PO ONE ×2 (01:07)
[2024-08-28] MEDS ORDERED: OLME5TAB22 PO (04:18)
[2024-08-28 05:53] LABS: Hematocrit 39.5 % (41.0-53.0); Hemoglobin 13.6 g/dL (13.5-17.5); Mean Corpuscular Hemoglobin 30.7 pg (28.0-32.0); Mean Corpuscular Volume 89.4 fL (80.0-100.0); Nucleated Red Blood Cells % 0.0 %
[2024-08-28] MEDS: PANTOPRAZOLE 40 MG TAB PO SCH (06:00)
[2024-08-28] MEDS ORDERED: PANTOPRAZOLE 40 MG TAB PO SCH (06:00)
[2024-08-28 06:14] LABS: Alanine Aminotransferase 24 U/L (7-40); Albumin 4.2 g/dL (3.2-4.8); Alkaline Phosphatase 46 U/L (46-116); Anion Gap 10 (5-15); BUN/Creatinine Ratio 19.8 (10.0-20.0); Blood Urea Nitrogen 18 mg/dL (9-23); Calcium 9.6 mg/dL (8.7-10.4); Carbon Dioxide 24 mmol/L (20-31); Glucose 87 mg/dL (74-106); Potassium 3.9 mmol/L (3.5-5.1); Sodium 143 mmol/L (136-145); Total Protein 6.1 g/dL (5.7-8.2)
[2024-08-28 06:15] LABS: Bilirubin, Direct 0.2 mg/dL (<0.3)
[2024-08-28 06:22] LABS: Chloride 109 mmol/L (98-107)
[2024-08-28 06:35] LABS: Magnesium 2.3 mg/dL (1.6-2.6)
[2024-08-28 06:36] LABS: Bilirubin, Total 0.5 mg/dL (0.2-1.0)
[2024-08-28 07:26] LABS: Urine Protein, UAD Negative (Negative)
[2024-08-28 07:38] LABS: Amphetamine Screen, Urine Neg (NEGATIVE); Barbiturate Scree,Urine Neg (NEGATIVE); Benzodiazephine Screen, Urine Neg (NEGATIVE); Cannabinoid Screen, Urine Neg (NEGATIVE); Cocaine Screen, Urine Neg (NEGATIVE); Opiate Scree,Urine Neg (NEGATIVE); Phencyclidine Screen, Urine Neg (NEGATIVE)
[2024-08-28 08:00] VITALS: PULSE 56; PULSE 60; RESP 16; O2SAT 95
[2024-08-28 08:34] VITALS: BP 123/82; PULSE 60; RESP 16; TEMP 98; O2SAT 95
[2024-08-28] MEDS: LOSARTAN POTASSIUM 25 MG TAB PO SCH (09:23)
[2024-08-28] MEDS: ENOXAPARIN SOD 40 MG/0.4 ML SYRINGE SC SCH (09:24)
[2024-08-28] MEDS ORDERED: ENOXAPARIN SOD 40 MG/0.4 ML SYRINGE SC SCH (10:00)
--- NOTE | 2024-08-28 10:15 | ECG ---
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
[2024-08-28 13:08] VITALS: BP 123/72; PULSE 56; RESP 17; TEMP 98; O2SAT 96
--- NOTE | 2024-08-28 13:31 | DVHPN2 ---
Progress Note - Dictate Date Seen: Aug 28, 2024 Medical Necessity Reason Pt with a Central, PICC or Fol: No Subjective PT WITH CHEST PAIN ECG NEGATIVE TROPONIN NEGATIVE [facility] 03/17 RESULTS: * Left main patent. * Left anterior descending artery was patent. * Circumflex was patent and dominant. * Right coronary artery patent without any flow-restrictive lesion. * Left ventricular function shows global hypokinesis and estimated EF around 40%-45% with an LVEDP of 15 mmHg with no gradient across the aortic valve. ECHO EF 40-45% LVH vital signs Vital Sign Date Time Temp Pulse Resp B/P (MAP) Pulse Ox O2 Delivery O2 Flow Rate FiO2 08/28/24 13:08 98.0 56 17 123/72 (89) 96 98.0 08/28/24 08:00 Room Air* 0 21 Total Intake and Output 08/27/24 08/27/24 08/28/24 15:00 23:00 07:00 Intake Total 100 ml Balance 100 ml medications Current Medications Medications Dose Ordered Sig/Neris Route Start Time Stop Time Status Last Admin Dose Admin Enoxaparin Sodium 40 mg DAILY SC 08/28/24 10:00 Acetaminophen 650 mg Q6HP PRN PO 08/28/24 00:45 Aspirin 81 mg DAILY PO 08/28/24 10:00 08/28/24 09:24 81 MG Atorvastatin Calcium 40 mg HS PO 08/28/24 22:00 Pantoprazole Sodium 40 mg DAILY@0600 PO 08/28/24 06:00 Buspirone HCl 10 mg BID PO 08/28/24 10:00 08/28/24 09:23 10 MG Losartan Potassium 25 mg DAILY PO 08/28/24 10:00 08/28/24 09:23 25 MG laboratory and microbiology Laboratory Tests 08/28/24 04:42 Test 08/28/24 04:42 Range/Units Serum Glucose 87 74-106 mg/dL Problem List HEST PAIN ECG NEGATIVE TROPONIN NEGATIVE [facility] 03/17 RESULTS: * Left main patent. * Left anterior descending artery was patent. * Circumflex was patent and dominant. * Right coronary artery patent without any flow-restrictive lesion. * Left ventricular function shows global hypokinesis and estimated EF around 40%-45% with an LVEDP of 15 mmHg with no gradient across the aortic valve. ECHO EF 40-45% LVH Assessment/Plan MAY DC HOME FOLLOWUP IN 1 WEEK CONT HOME MEDS Plan discussed with: Patient JOSE NOE MD Aug 28, 2024 13:31
[2024-08-28 14:29] VITALS: BP 123/82; PULSE 56; RESP 17; TEMP 98; O2SAT 96
[2024-08-28] MEDS ORDERED: CLON0.5T4 PO (15:52)
--- NOTE | 2024-08-28 16:14 | DVHDSRES ---
Discharge Summary Date of Admission Resident Creating Document: BRIDGER MONACO RESIDENT Aug 27, 2024 at 22:16 Date of Discharge: Aug 28, 2024 Admitting Diagnosis Acute chest tightness and shortness of breath, rule out acute coronary syndrome Labs/Diagnostic Data: Laboratory Results Test 08/28/24 06:27 08/28/24 04:42 08/27/24 13:58 08/27/24 11:02 Urine Color Colorless (Yellow) Urine Clarity Clear (Clear) Urine pH 7.0 (5.0-9.0) Urine Specific [place] 1.007 (1.001-1.035) Urine Protein Negative (Negative) Urine Ketones Negative (Negative) Urine Blood Negative /uL (Negative) Urine Nitrite Negative (Negative) Urine Bilirubin Negative (Negative) Urine Urobilinogen Normal mg/dL (Negative) Urine Leukocyte Esterase Negative /uL (Negative) Urine RBC None seen /hpf (0 - 3) Urine Microscopic WBC < 1 /HPF (0-3) Urine Squamous Epithelial Cells None seen /hpf (<5) Urine Bacteria None seen /hpf (None Seen) Urine Glucose Normal mg/dL (Normal) Urine Opiates Screen Neg (NEGATIVE) Urine Fentanyl Screen Neg (NEGATIVE) Urine Barbiturates Screen Neg (NEGATIVE) Urine Phencyclidine Screen Neg (NEGATIVE) Urine Amphetamines Screen Neg (NEGATIVE) Urine Benzodiazepines Screen Neg (NEGATIVE) Urine Cocaine Screen Neg (NEGATIVE) Urine Cannabinoids Screen Neg (NEGATIVE) White Blood Count 8.1 10^3/uL (4.4-10.8) Red Blood Count 4.42 10^6/uL (4.5-5.90) Hemoglobin 13.6 g/dL (13.5-17.5) Hematocrit 39.5 % (41.0-53.0) Mean Corpuscular Volume 89.4 fL (80.0-100.0) Mean Corpuscular Hemoglobin 30.7 pg (28.0-32.0) Mean Corpuscular Hemoglobin Concent 34.3 g/dL (32.0-36.0) Red Cell Distribution Width 13.0 % (11.8-14.3) Platelet Count 238 10^3/uL (140-450) Mean Platelet Volume 7.8 fL (6.9-10.8) Neutrophils (%) (Auto) 45.1 % (37.0-80.0) Lymphocytes (%) (Auto) 38.7 % (10.0-50.0) Monocytes (%) (Auto) 9.0 % (0.0-12.0) Eosinophils (%) (Auto) 6.7 % (0.0-7.0) Basophils (%) (Auto) 0.5 % (0.0-2.0) Neutrophils # (Auto) 3.6 10 ^3/uL (1.6-8.6) Lymphocytes # (Auto) 3.1 10 ^3/uL (0.4-5.4) Monocytes # (Auto) 0.7 10 ^3/uL (0-1.3) Eosinophils # (Auto) 0.5 10 ^3/uL (0-0.8) Basophils # (Auto) 0 10 ^3/uL (0-0.2) Nucleated Red Blood Cells 0.0 % Sodium Level 143 mmol/L (136-145) Potassium Level 3.9 mmol/L (3.5-5.1) Chloride Level 109 mmol/L (98-107) Carbon Dioxide Level 24 mmol/L (20-31) Anion Gap 10 (5-15) Blood Urea Nitrogen 18 mg/dL (9-23) Creatinine 0.91 mg/dL (0.700-1.30) Glomerular Filtration Rate Calc 106 mL/min (>90) BUN/Creatinine Ratio 19.8 (10.0-20.0) Serum Glucose 87 mg/dL (74-106) Hemoglobin A1c 5.5 % A1C (<5.7) Calcium Level 9.6 mg/dL (8.7-10.4) Magnesium Level 2.3 mg/dL (1.6-2.6) Total Bilirubin 0.5 mg/dL (0.2-1.0) Direct Bilirubin 0.2 mg/dL (<0.3) Aspartate Amino Transferase (AST) 20 U/L (13-40) Alanine Aminotransferase (ALT) 24 U/L (7-40) Alkaline Phosphatase 46 U/L (46-116) Total Protein 6.1 g/dL (5.7-8.2) Albumin 4.2 g/dL (3.2-4.8) Vitamin B12 Level 308 pg/mL (211-911) Vitamin D 25-Hydroxy 39.1 ng/mL (30.0-100) Folic Acid 15.18 ng/mL (>5.38) Thyroid Stimulating Hormone (TSH) 1.76 uIU/mL (0.55-4.78) Troponin I High Sensitivity 3 ng/L (</=54) D-Dimer, Quantitative < 0.19 mg/L FEU (0.0-0.49) B-Type Natriuretic Peptide 19.15 pg/mL (0-100) Other Laboratory Tests 08/28/24 04:42 Brief Hx & Hospital Course: Patient is 44 years old male with past medical history of hypertension, cardiomyopathy, EF 45%, anxiety came with a complaint of shortness of breaths. As per patient he has been having shortness of breaths for last 5 days, intermittent, both during resting and on ambulation which got worse and he was feeling like gasping for air which brought him to the ER. Patient came with acute chest tightness and shortness of breath for which acute coronary syndrome was ruled out. EKG showed T-wave in lead 3 and AVF, troponin I and BNP within normal limits, and CXR-ray no acute abnormality noted. cardiology consult was done and continuation of home medications (aspirin 81 mg p.o. daily, atorvastatin 40 mg p.o.). Stress test was done which was negative, left heart catheterization was done by Dr. Cordon which revealed no significant CAD, LVEF 40- 45%, dilated cardiomyopathy was seen. For patient's hypertension blood pressure was monitored continuously and the patient has been recommended to continue Olmesartan. For his obesity he was counseled about the effect of obesity on health, to continue physical activity as tolerated, regarding weight reduction, and low-fat diet. For patient's anxiety he was recommended to continue buspirone. Patient communicated understanding and is stable for discharge. He was advised to continue all home medications, and to follow up with PCP in 1-2 weeks, Dr. Cordon in 1 week. General: Patient alert and oriented in person, place and time. Patient following commands. HEENT: Normocephalic, atraumatic, moist mucous membranes Respiratory/pulmonary: Clear lungs bilaterally, vesicular murmurs present in almost all lung mcfadden, no associated crackles or wheezes. Cardiovascular: Normal heart sounds S1 and S2 with no associated murmurs Abdomen: Abdomen nondistended, there is no pain to palpation in any of the abdominal quadrants, no palpable masses. Extremities: There is no peripheral edema present at the lower extremities. Peripheral Pulses: 3+ Radial (R). 3+ Radial (L). 3+ Dorsalis pedis (R). 3+ Dorsalis pedis(L) Skin: No rashes or pruritus, there is no sacral edema present at this time. Neurological: Intact cranial nerves with no focal neurologic deficits Condition at Discharge: Stable Final Diagnosis/Problems List # Acute chest tightness and shortness of breaths, ruled out acute coronary syndrome possibly due to Anxiety # Dilated cardiomyopathy #Hypertension #Obesity- 41.8 #Anxiety Discharge Disposition: Home Discharge Instruct/Medications Diet: Consistent carbohydrate, Cardiac 2g Na,low cholest Activity: No Restrictions, As Tolerated Follow Up/Referral: Follow up PCP in 1-[address] Cordon in 1 week Medications: As per EMR Scheduled Aspirin (Aspir-Low), 81 MG PO DAILY, (Reported) Atorvastatin Calcium (Atorvastatin Calcium), 1 TAB PO DAILY, (Reported) Buspirone HCl (Buspirone HCl), 10 MG PO B.i.d. Esomeprazole Magnesium Trihydr (Nexium), 1 CAP PO DAILY, (Reported) Magnesium Bisglycinate (Mag Glycinate), 250 MG PO DAILY, (Reported) Scheduled PRN Clonazepam (Clonazepam), 0.5 MG PO DAILYPRN PRN Miscellaneous Medications Olmesartan Medoxomil (Olmesartan Medoxomil), TAB PO, (Reported) Discharge Statement: "Patient was advised to return to the ER or call 911 if any headaches, dizziness, shortness of breath, chest pain, abdominal pain, bleeding, fevers, or worsening of medical condition. Patient was counseled about treatment plan, medications, possible side effects, patientverbalized understanding. All questions were answered to the best of my ability. This discharge took greater then 30 minutes in planning, reviewing documentation, counseling the patient, and discussing with other team members." ASSESSMENT ASSESSMENT Assessment # Acute chest tightness and shortness of breaths, rule out acute coronary syndrome # Dilated cardiomyopathy #Hypertension #Anxiety #Obesity Date of Service: Aug 28, 2024 Billing Provider: COLIN PETER MD Common Visit Codes: 11173-EAY/OBS DISCH DAY >30min BRIDGER MONACO Aug 28, 2024 16:14 COLIN PETER MD Aug 28, 2024 20:33
[2024-08-28] MEDS ORDERED: ATORVASTATIN 20 MG TAB PO SCH ×2 (22:00)
== END 2024-08-28 15:22 | disposition home or self-care (01) | DRG 313 ==
LOC: ER 09:56 → OVERFLOW 22:16 → TELE-WESTW 22:24
PROVIDERS: ADMIT Student in an Organized Health Care Education/Training Program; ATTEND Emergency Medicine
DX: R07.89 Other chest pain (principal); I42.0 Dilated cardiomyopathy; Z68.41 Body mass index [BMI] 40.0-44.9, adult; I10 Essential (primary) hypertension; E66.9 Obesity, unspecified; I25.10 Atherosclerotic heart disease of native coronary artery without angina pectoris; F41.9 Anxiety disorder, unspecified; Z87.891 Personal history of nicotine dependence; Z79.899 Other long term (current) drug therapy; Z79.82 Long term (current) use of aspirin
CPT/HCPCS: 36415; 71046; 80048; 80076; 80307; 81001; 82306; 82607; 82746; 83036; 83735; 83880; 84443; 84484; 85025; 85379; 93005; 93306; 99291; G0378

== ENCOUNTER → 2024-10-31 | Outpatient (CLI) | payer BC ==
[~2024-10-31] MED LIST changes: +CLON0.5T4 PO; +OLME5TAB22 PO
== END | disposition home or self-care (01) ==
LOC: Rad HDHVI 08:05
PROVIDERS: ATTEND Internal Medicine Cardiovascular Disease
DX: I11.9 Hypertensive heart disease without heart failure (principal); I42.1 Obstructive hypertrophic cardiomyopathy; I77.819 Aortic ectasia, unspecified site
CPT/HCPCS: 93306